=== PATIENT | male | born 1950 | race Caucasian/White ===

== ENCOUNTER → 2021-03-22 09:25 | Outpatient (BNVA) | payer MEDICARE, SELFPAY | PROVIDERS: Visit Provider Nurse Practitioner Family | DX: Z12.5 Encounter for screening for malignant neoplasm of prostate (principal); R03.0 Elevated blood-pressure reading, without diagnosis of hypertension | CPT/HCPCS: 80053; 80061; 84443; 85025; G0103 ==

== ENCOUNTER → 2021-04-15 12:51 | Outpatient (BNVA) | payer MEDICARE, SELFPAY | PROVIDERS: PCP Nurse Practitioner Family; Visit Provider Urology | DX: N52.9 Male erectile dysfunction, unspecified (principal); R97.20 Elevated prostate specific antigen [PSA] | CPT/HCPCS: 81003; 84153 ==

== ENCOUNTER → 2021-10-17 08:54 | Outpatient (BNVA) | payer MEDICARE, SELFPAY | PROVIDERS: PCP Nurse Practitioner Family; Visit Provider Dermatology | DX: R97.20 Elevated prostate specific antigen [PSA] (principal); R39.9 Unspecified symptoms and signs involving the genitourinary system; R39.89 Other symptoms and signs involving the genitourinary system | CPT/HCPCS: 80053; 84153; 84403; 85025 ==

== ENCOUNTER → 2021-12-05 09:00 | Outpatient (BNVA) | payer MEDICARE, SELFPAY | PROVIDERS: PCP Nurse Practitioner Family; Visit Provider Dermatology | DX: I85.00 Esophageal varices without bleeding (principal); C61 Malignant neoplasm of prostate | CPT/HCPCS: 80053; 84153; 84403; 85025 ==

== ENCOUNTER → 2022-01-16 09:47 | Outpatient (BNVA) | payer MEDICARE, SELFPAY | PROVIDERS: PCP Nurse Practitioner Family; Visit Provider Dermatology | DX: C61 Malignant neoplasm of prostate (principal) | CPT/HCPCS: 80053; 84153; 84403; 85025 ==

== ENCOUNTER → 2022-02-15 08:47 | Outpatient (BNVA) | payer MEDICARE, SELFPAY | PROVIDERS: PCP Nurse Practitioner Family; Visit Provider Urology | DX: C61 Malignant neoplasm of prostate (principal); R97.20 Elevated prostate specific antigen [PSA]; R39.89 Other symptoms and signs involving the genitourinary system | CPT/HCPCS: 80048; 81000; 85025; 85730 ==

== ENCOUNTER → 2022-02-23 08:12 | Outpatient (BNVA) | payer MEDICARE, SELFPAY | PROVIDERS: PCP Nurse Practitioner Family; Visit Provider Urology | DX: C61 Malignant neoplasm of prostate (principal) | CPT/HCPCS: 81000; 81003; 85610 ==

== ENCOUNTER → 2022-04-17 08:40 | Outpatient (BNVA) | payer MEDICARE, SELFPAY | PROVIDERS: PCP Nurse Practitioner Family; Visit Provider Dermatology | DX: R97.20 Elevated prostate specific antigen [PSA] (principal); C61 Malignant neoplasm of prostate; N28.89 Other specified disorders of kidney and ureter | CPT/HCPCS: 80053; 84153; 84403; 85025 ==

== ENCOUNTER → 2022-07-24 09:59 | Outpatient (BNVA) | payer MEDICARE, SELFPAY | PROVIDERS: PCP Nurse Practitioner Family; Visit Provider Dermatology | DX: C61 Malignant neoplasm of prostate (principal); R97.20 Elevated prostate specific antigen [PSA] | CPT/HCPCS: 80053; 84153; 84403; 85025 ==

== ENCOUNTER → 2022-10-17 08:52 | Outpatient (BNVA) | payer MEDICARE, SELFPAY | PROVIDERS: PCP Nurse Practitioner Family; Visit Provider Dermatology | DX: R39.89 Other symptoms and signs involving the genitourinary system (principal); R97.20 Elevated prostate specific antigen [PSA]; N52.9 Male erectile dysfunction, unspecified; E11.9 Type 2 diabetes mellitus without complications | CPT/HCPCS: 80053; 83036; 84153; 84403 ==

== ENCOUNTER → 2023-01-16 09:41 | Outpatient (BNVA) | payer MEDICARE, SELFPAY | PROVIDERS: PCP Nurse Practitioner Family; Visit Provider Nurse Practitioner Family | DX: C61 Malignant neoplasm of prostate (principal) | CPT/HCPCS: 80053; 84153; 84403; 85025 ==

== ENCOUNTER → 2024-10-30 13:38 | Outpatient (BNVA) | payer MEDICARE, SELFPAY | PROVIDERS: PCP Nurse Practitioner Family; Visit Provider Student in an Organized Health Care Education/Training Program | DX: K40.90 Unilateral inguinal hernia, without obstruction or gangrene, not specified as recurrent (principal) | CPT/HCPCS: 99204 ==

== ENCOUNTER 2024-11-14 09:08 | Outpatient (CLI) | payer MEDICARE, SELFPAY ==
[2024-11-14] MEDS: iohexol 350 mg/mL 500 mL Btl (per mL) IV (09:25)
--- NOTE | 2024-11-14 09:30 | CTR_ITS ---
PROCEDURE INFORMATION: Exam: CT Abdomen And Pelvis With Contrast Exam date and time: 11/14/2024 9:48 AM Age: 74 years old Clinical indication: Condition or disease; Hernia; Complications not specified; Inguinal; Primary cancer: HX of prostate and bone cancer; Additional info: Hernia, iv contrast only TECHNIQUE: Imaging protocol: Computed tomography of the abdomen and pelvis with contrast. Radiation optimization: All CT scans at this facility use at least one of these dose optimization techniques: automated exposure control; mA and/or kV adjustment per patient size (includes targeted exams where dose is matched to clinical indication); or iterative reconstruction. Contrast material: OMNI 350; Contrast volume: 100 ml; Contrast route: INTRAVENOUS (IV); COMPARISON: No relevant prior studies available. RADIATION DOSE METRICS: Total DLP (mGy-cm): 340.91 FINDINGS: Liver: A 13 mm cyst is present in the extreme posteroinferior right lobe of the liver. No suspicious hepatic mass detected. Gallbladder and biliary ducts: No gallbladder wall thickening or biliary duct dilation. Pancreas: A 12 mm cyst is present in the pancreatic head adjacent to the ampulla. It could potentially represent a small intrapancreatic choledochal cyst though other etiology is certainly not excluded. A search for any prior studies performed elsewhere that could confirm long-term stability could alleviate additional imaging. No obvious acute abnormality of the pancreas. Spleen: Normal size; no suspicious masses. Adrenal glands: A 2.2 x 2.2 x 2.7 cm right adrenal mass has heterogeneous but relatively low-attenuation, favoring adrenal adenoma. Kidneys and ureters: Symmetric renal parenchymal enhancement without hydronephrosis or suspicious renal mass. Stomach and bowel: No evidence of bowel obstruction. Severe sigmoid diverticulosis without obvious findings of acute diverticulitis. Equivocal rectal wall thickening could be a spurious finding related to lack of distension, but pathologic wall thickening is not excluded. Please correlate clinically. Appendix: The appendix is normal. Intraperitoneal space: No free intraperitoneal air or significant ascites. Vasculature: Moderately extensive aortoiliac atherosclerotic calcifications without aneurysmal dilation. Lymph nodes: No enlarged lymph nodes. Urinary bladder: Urinary bladder is almost empty, limiting assessment of bladder wall. Findings compatible with prior TURP. Reproductive: See Urinary bladder finding. Bones/joints: No acute fracture. Presumed small bone island left iliac bone near the inferior margin of the SI joint. Probable small bone island in the left femoral head. History of prostate cancer, correlation with PSA and any prior studies would be helpful. Soft tissues: Right inguinal hernia contains small bowel without evidence of high-grade obstruction, though there is narrowing of bowel at the entry and exit points to the hernia sac. CT/CT abdomen pelvis w con* [id number] IMPRESSION: 1. No obvious acute abnormality within the abdomen or pelvis. 2. Right inguinal hernia contains small bowel without evidence of significant obstruction at this time. 3. There are multiple additional findings there incidental and/or nonacute. Please see details provided above.
[2024-11-14 09:45] LABS: Blood Urea Nitrogen 12 mg/dL (8-23)
== END 2024-11-14 09:09 | disposition home or self-care (01) ==
PROVIDERS: PCP Nurse Practitioner Family; Visit Provider Student in an Organized Health Care Education/Training Program
DX: K40.90 Unilateral inguinal hernia, without obstruction or gangrene, not specified as recurrent (principal)
CPT/HCPCS: 74177; 82565; 84520

== ENCOUNTER → 2024-11-20 08:34 | Outpatient (BNVA) | payer MEDICARE, SELFPAY | PROVIDERS: PCP Nurse Practitioner Family; Visit Provider Student in an Organized Health Care Education/Training Program | DX: Z09 Encounter for follow-up examination after completed treatment for conditions other than malignant neoplasm (principal); K40.90 Unilateral inguinal hernia, without obstruction or gangrene, not specified as recurrent | CPT/HCPCS: 99214 ==

== ENCOUNTER 2024-11-26 08:56 | Day surgery (SDC) | payer MEDICARE, SELFPAY ==
[2024-11-26] VITALS (12 sets, daily range): BP systolic 112–174; BP diastolic 56–102; PULSE 55–62; RESP 15–17; TEMP 36.2–36.6; O2SAT 92–99; BMI 25.5
--- NOTE | 2024-11-26 10:01 | W.PM.OPSUD ---
Surgery/Procedure H&P Update DATE OF PROCEDURE: November 26, 2024 DATE H&P PERFORMED: 11/20/24 H&P UPDATE INFORMATION: I have reviewed H&P completed within last 30 days, I have examined patient prior to procedure and No changes to prior documentation CHANGES TO PREVIOUS DOCUMENTATION: Marked right groin in preop area PLANNED PROCEDURE: Operation Date: 11/26/24 10:55 Proposed Procedures p RIGHT Open Inguinal Hernia Repair w/ Mesh [id number], K40.90(Right) - Sanya Dumont MD
--- NOTE | 2024-11-26 10:28 | ANES.PREANE2 ---
Pre-Anesthetic Assessment Height/Weight: Height 1.73 m Weight 76.204 kg Temp Pulse Resp BP Pulse Ox O2 Del Method 97.8 F 56 L 17 173/102 98 Room Air 11/26/24 09:30 11/26/24 09:30 11/26/24 09:30 11/26/24 09:30 11/26/24 09:30 11/26/24 09:30 Operation Date: 11/26/24 10:55 Proposed Procedures p RIGHT Open Inguinal Hernia Repair w/ Mesh [id number], K40.90(Right) - Sanya Dumont MD Familial anesthetic complications: None Was Beta Ozzy taken within 24 hours: N/A Was Clonidine taken within 24 hours: N/A Last intake: Intake Last Liquid Date 11/25/24 Last Liquid Time 20:00 Last Solid Date 11/25/24 Last Solid Time 17:00 Social Alcohol (up to 6 beers a night, states he's never had a seizure, last drink was last night) and No alcohol Exam alert, oriented x 3, clear to auscultation bilaterally and regular rate & rhythm Airway Mallampati: Class I Dentition: full Anesthetic Plan ASA status: 2 Anesthesia: General Risk of > 500 ml blood loss (7ml/kg in children): No Medications/Allergies Home Medications ?Medication ?Instructions ?Recorded ?Confirmed ?Last Taken ?Type psyllium seed (sugar) oral powder 1 tsp PO DAILY 04/15/21 11/25/24 11/25/24 History (Metamucil (sugar) oral powder) calcium 600 mg capsule 1,200 mg PO DAILY 11/25/24 11/25/24 11/25/24 History cyanocobalamin (vitamin B-12) 500 1,000 mcg PO DAILY 11/25/24 11/25/24 11/25/24 History mcg tablet (B-12 DOTS) [id number]-vitC 1 cap PO DAILY 11/25/24 11/25/24 11/25/24 History capsule (Glucosamine Complex-MSM capsule) potassium 99 mg tablet 99 mg PO BID 11/25/24 11/25/24 11/25/24 History zinc 50 mg tablet 50 mg PO DAILY 11/25/24 11/25/24 11/25/24 History Allergies Allergy/AdvReac Type Severity Reaction Status Date / Time No Known Allergies Allergy Verified 11/20/24 08:35 Current Medications Generic Name Dose Route Start Last Admin Trade Name Freq PRN Reason Stop Dose Admin Sodium Chloride 1,000 mls @ 30 mls/hr 11/26/24 09:15 11/26/24 09:41 Sodium Chloride 0.9% IV 11/27/24 09:14 30 mls/hr .Q24H RICHI Administration PFSH Anesthesia Medical History (Updated 11/20/24 @ 09:00 by Sanya Dumont MD) Incomplete bladder emptying Abnormal prostate exam Elevated PSA Family History Mother , AT 89 Cancer Father , AT 101 Cancer Social History Smoking and tobacco/nicotine status: former use of tobacco/nicotine Alcohol intake: current Alcohol intake frequency: 3 or more drinks per day Alcohol type: beer and hard liquor Substance/Drug Use: never Marital status: / Current occupational status: retired
[2024-11-26] MEDS: ceFAZolin 2,000 mg SDV 2000 MG IVP (10:37)
[2024-11-26] MEDS: lidocaine-epi 1% 20 mL INJ 10 ML INJECTION (11:17)
[2024-11-26] MEDS: BUPivacaine 0.25% INJ 10 mL INJECTION (11:18)
--- NOTE | 2024-11-26 11:23 | PM.OP ---
Operative Report Date of procedure: November 26, 2024 Pre-op diagnosis: Right inguinal hernia Post-op diagnosis: same Post-op findings: Medium sized indirect and direct right inguinal hernia. Hernia sac along with contents reduced into the abdomen. Repaired defect using plug and patch mesh size large. Procedure done: Open right inguinal hernia repair with mesh Implants: Plug and patch mesh size large Specimens removed/disposition: N/A Pathology: N/A Surgeon: Sanya Dumont MD Title Camera Operator: N/A Anesthesia: General Estimated blood loss (mL): 10 Complications: N/A Findings: Medium sized indirect and direct right inguinal hernia. Hernia sac along with contents reduced into the abdomen. Repaired defect using plug and patch mesh size large. Condition: stable Disposition: same day Brief History: 74-year-old male who presented with a right inguinal hernia that was symptomatic. Discussed risk and benefits and patient agreed to proceed with right inguinal hernia repair with mesh. Right groin marked in preop. Procedure: Patient brought to the OR and placed supine on the table. SCDs were placed and functioning. Preoperative ancef was administered. General anesthesia was induced. A edmondson catheter was placed without any complications. The right groin was prepped and draped in the usual sterile fashion. Local infiltration at the surgical site was done using lidocaine/bupivacaine with epinephrine. A 5cm incision was carried out over the right inguinal canal. Tissue dissection was carried down to the external oblique fascia using electrocautery. The fascia was incised and the cord structures were identified. Cord structures were dissected of the hernia sac. I identified a medium indirect as well as a direct inguinal hernia. The hernia sac was dissected and reduced into the abdomen. The plug was placed at the site of the deep inguinal ring and the posterior wall of the inguinal canal was reinforced using a mesh patch. The plug was fixed using 2-0 ethibond to the cojoint ligament and inguinal ligament with interrupted sutures. The mesh patch was sutured to the cojoint tendon and the inguinal ligament using interrupted sutures with 2-0 ethibond. The external oblique fascia was closed using 3-0 vicryl. Skin was closed using 4-0 monocryl and surgical glue. Edmondson was removed. The patient woke up from anesthesia and was transferred to PACU without any complications.
[2024-11-26] MEDS: fentaNYL 50 mcg/mL INJ 2mL IVP ×2 (11:45→11:53)
--- NOTE | 2024-11-26 13:27 | ANE.PACU2 ---
Inpatient post-anesthesia follow up: Airway intact: Yes Vital signs: Temperature 97.8 F Pulse Rate 59 Respiratory Rate 16 Blood Pressure 168/84 Pulse Oximetry 97 Oxygen Delivery Me thod Room Air Oxygen Flow Rate Fraction of Inspir ed Oxygen Hydration adequate: Yes Nausea and vomiting: No Pain level: 1 Mental status: Baseline
== END 2024-11-26 13:26 | disposition home or self-care (01) ==
PROVIDERS: Visit Provider Student in an Organized Health Care Education/Training Program
PROC: (CPT 49505; principal; 2024-11-26 10:45)
DX: K40.90 Unilateral inguinal hernia, without obstruction or gangrene, not specified as recurrent (principal); Z87.891 Personal history of nicotine dependence
CPT/HCPCS: 49505; 51702; C1781; J0330; J0690; J1100; J1171; J2405; J2704; J3010; J3490; J7030; J9999

== ENCOUNTER → 2024-12-15 08:30 | Outpatient (BNVA) | payer MEDICARE, SELFPAY | PROVIDERS: PCP Nurse Practitioner Family; Visit Provider Student in an Organized Health Care Education/Training Program | DX: K40.90 Unilateral inguinal hernia, without obstruction or gangrene, not specified as recurrent (principal) | CPT/HCPCS: 99024 ==